=== PATIENT | female | born 1945 | race Caucasian/White ===

== ENCOUNTER → 2016-12-10 | Outpatient (CLI) | payer MEDICARE, BC ==
[~2016-12-10] MED LIST: ACETAMINOPHEN PO; AMLODIPINE BESYL5 MG PO; AMOXICILLIN500 M1 PO; BENICAR HCT 40-1 TA1 PO; BENICAR HCT 40-1 TAB PO; CITRACAL-VIT D1 EACH PO; CLARITIN R10 MG REDI PO; COUGH MM; FISH OIL 1,001000 MG PO; FISH OIL 1,2001 EAC1 PO; GLUCOSAMINE & C1 CAP PO; GNP ONE DAILY1 EAC4 PO; HYDROCODON-ACE1 EAC9 PO; LOSARTAN POTASS50 MG PO; MELOXICAM15 MG PO; MULTIPLE VITAMI1 T10 PO; ONE DAILY FOR1 EAC3 PO; PRAVACHOL10 MG PO; PRAVACHOL20 MG PO; PRILOSEC20 MG PO; RANITIDINE HCL150 M1 PO; TUSSIN DM 400-1 EACH PO; TYL325 PO; TYLENOL EXTRA500 M1 PO; VICODIN ES 7.51 EACH PO; VITAL-D RX TABL1 TAB PO; VITAMIN D1000 UNIT PO; VITAMIN D32000 UNIT PO; ZOCOR20 MG PO
--- NOTE | ~2016-12-10 | BD1 ---
[facility] A Service of [facility] & [facility] RADIOLOGY TEXT RESULTS PATIENT: GORDO MENDOZA LOCATION: [facility] : 47 UNIT #: [id number] AGE: [address]: Donald Montilla MD SEX: F ORDER DR: [id number] [facility] [address] [place], [place] [address] [id number] O MR#: [id number] Acc #: [id number] NAME: GORDO MENDOZA : 1945 SEX: F STUDY DATE/TIME: 12/10/2016 12:51 UNIT: [facility] ROOM: STUDY DESCRIPTION: BD Dexa Bone Dens 1+ Site Attending Physician: Donald Montilla Ordering Physician: Mihai Maravilla M.D. Primary Care Physician: Kristin Maravilla M.D. MEDICAL IMAGING REPORT This report is preliminary unless electronic signature is present EXAM DXA scan, 12/10/2016 HISTORY Status post menopause with no hormone replacement therapy. Osteopenia. Breast carcinoma in 2017. Arthritis. Hypertension with blood pressure medication. Fracture of right heel last year. Family history of osteoporosis in mother. FINDINGS Bone mineral density in the lumbar spine from L1-L4 is 0.854 g/cm2, which is 1.8 standard deviations below the mean when compared to the young adult reference population, which is characteristic of osteopenia. This is 0.4 standard deviations above the mean when compared to the age-match population. Compared with 08/11/2014, there has been an increase in bone mineral density in the lumbar spine of 2.2%. Bone mineral density in the left femoral neck was 0.718 g/cm2, which is 1.2 standard deviations below the mean when compared to the young adult reference population, which is characteristic of osteopenia. This is 0.6 standard deviations above the mean when compared to the age-match population. Compared with 08/11/2014, there has been a decrease in bone mineral density in the left hip of 0.8%. IMPRESSION Bone mineral density in the lumbar spine and left hip characteristic of osteopenia. Compared with 08/11/2014, there has been an increase in bone mineral density in the lumbar spine and a decrease in bone mineral density in the left hip. Dictated by... Jacques Starkey M.D. THIS IS AN ELECTRONICALLY VERIFIED REPORT [facility] A Service of [facility] & [facility] RADIOLOGY TEXT RESULTS PATIENT: GORDO MENDOZA LOCATION: [facility] : 47 UNIT #: [id number] AGE: [address]: Donald Montilla MD SEX: F ORDER DR: Jacques Starkey M.D. at 12/11/2016 6:06 AM AD/francisco j TD: 12/10/2016 21:02 JOB #: [id number] MEDICAL IMAGING REPORT COPY
== END | disposition home or self-care (01) ==
LOC: CWCC 12:10
DX: Z13.820 Encounter for screening for osteoporosis (principal); C50.411 Malignant neoplasm of upper-outer quadrant of right female breast; M85.89 Other specified disorders of bone density and structure, multiple sites; Z79.811 Long term (current) use of aromatase inhibitors
CPT/HCPCS: 77080